=== PATIENT | male | born 1995 | race Caucasian/White ===

== ENCOUNTER 2025-05-10 06:38 | Emergency (ER) | payer MEDICAID, OTHER ==
[~2025-05-10] VITALS: Ht 180.3 cm; Wt 108.0 kg
[2025-05-10 06:41] VITALS: O2SAT 99
[2025-05-10] MEDS: SODIUM CHLORIDE 0.9% 1,000 ML IV ONE (07:49)
[2025-05-10] MEDS: ONDANSETRON HCL 4MG/2ML INJ IV STA (07:51)
[2025-05-10 08:11] LABS: BASOPHILS % 0.5 % (0.0-2.0); EOSINOPHILS % 0.1 % (0.0-5.0); HEMATOCRIT. 46.6 % (42.0-52.0); HEMOGLOBIN. 16.1 g/dL (14.0-18.0); MEAN CORPUSCULAR HGB CONC 34.5 g/dL (31.0-37.0); MEAN CORPUSCULAR VOLUME 95.6 fL (80.0-94.0); MONOCYTES % 5.9 % (2.0-8.0); NEUTROPHILS % 72.5 % (40.0-76.0); PLATELET 323 x1000/uL (130-400); RED BLOOD CELL COUNT 4.87 mill/uL (4.7-6.1); RED CELL DISTRIBUTION WIDTH 13.4 % (11.6-14.6)
[2025-05-10 08:21] LABS: CARBON DIOXIDE 26 mEq/L (21-32); CHLORIDE 103 mEq/L (98-107); POTASSIUM 3.8 mEq/L (3.5-5.1); SODIUM 145 mEq/L (136-145)
[2025-05-10 08:22] LABS: CALCIUM 9.5 mg/dL (8.7-10.4)
[2025-05-10 08:26] LABS: CREATININE 0.9 mg/dL (0.6-1.3)
[2025-05-10 08:27] LABS: ETHANOL BLOOD 77 mg/dL (<10); GLUCOSE 116 mg/dL (70-105); UREA NITROGEN BLOOD 10 mg/dL (9-23)
[2025-05-10 08:28] LABS: ALANINE AMINOTRANSFERASE 113 IU/L (10-49)
[2025-05-10 08:29] LABS: ASPARTATE AMINOTRANSFERASE 43 IU/L (<34); BILIRUBIN DIRECT 0.2 mg/dL (<=3.0); BILIRUBIN TOTAL 0.7 mg/dL (0.1-1.0); PROTEIN TOTAL 7.7 g/dL (6.0-8.3)
[2025-05-10 09:30] VITALS: BP 140/92; PULSE 85; RESP 19; TEMP 36.6; O2SAT 97
== END 2025-05-10 09:30 | disposition home or self-care (01) ==
LOC: ER 06:38
DX: F10.229 Alcohol dependence with intoxication, unspecified (principal); E11.9 Type 2 diabetes mellitus without complications; I10 Essential (primary) hypertension; E03.9 Hypothyroidism, unspecified; F17.200 Nicotine dependence, unspecified, uncomplicated; Y90.3 Blood alcohol level of 60-79 mg/100 ml
CPT/HCPCS: 80076; 80048; 80320; 82962; 83690; 85025; 36415; 96361; 96374; 99283; J2405; J7030; Z7610 ×2; A4606; G0480